=== PATIENT | female | born 1990 | race Hispanic/Latino ===

== ENCOUNTER 2018-08-23 12:46 | Emergency (ER) | payer OTHER ==
[~2018-08-23] VITALS: Ht 162.6 cm; Wt 72.6 kg
[2018-08-23] MEDS ORDERED: DICLEGIS DR 101 EACH PO (15:47)
[2018-08-23] MEDS ORDERED: FLAGYL500 MG PO (15:47)
== END 2018-08-23 15:56 | disposition home or self-care (01) ==
LOC: ED 12:46
DX: O20.0 Threatened abortion (principal); Z3A.01 Less than 8 weeks gestation of pregnancy; Z88.0 Allergy status to penicillin
CPT/HCPCS: 76705; 76801; 76817; 80053; 81001; 83690; 84702; 85025; 86900; 86901; 87210; 87491; 87591; 96374; 99284-25; J2405

== ENCOUNTER 2019-04-13 15:00 | Inpatient (IN) | payer OTHER ==
[~2019-04-13] VITALS: Ht 160 cm; Wt 83.0 kg
[~2019-04-13 15:00] MED LIST: DICLEGIS DR 101 EACH PO; FLAGYL500 MG PO
--- NOTE | 2019-04-16 08:30 | NUR ---
ATTEMPTED IV ACCESS TWICE ON THE PT'S RIGHT FOREARM. WAS ABLE TO OBTAIN BLOOD, IV CATHETER DID NOT THREAD EASILY AND WHEN FLUSHED THE IV'S INFILTRATED. ARJUN LAUGHLIN RN NOTIFIED AND WAS ABLE TO OBTAIN IV ACCESS ON THE LEFT ARM. PRESSURE DRESSINGS APPLIED TO BOTH SITES. BOTH ATTEMPTS WERE WITH AN 18G IV. THE FIRST ATTEMPT WAS A NORMAL PERIPHERAL ATTEMPT AND THE SECOND ATTEMPT WAS WITH ULTRASOUND.
--- NOTE | 2019-04-16 11:25 | NUR ---
04/16/19 Jared5 Linda Vega 1116- PT ARRIVES TO [facility] ROOM #103. PT IS ALERT AND ORIENTED. RESP EVEN AND UNLABORED. OXYGEN SAT MID TO HIGH 90'S ON RA. BABY SKIN TO SKIN WITH PT. PT'S AT THE BEDSIDE. PT REPORTS NO DIZZINESS, NAUSEA, OR PAIN. 20G IV TO LEFT FOREARM IS INFUSING WELL WITH PITOCIN IN LR. 1119- PT'S HEAD OF THE BED SLIGHTLY ELEVATED. PT REPORTS NO DIZZINESS, NAUSEA, OR PAIN.
--- NOTE | 2019-04-17 11:59 | PR ---
[facility] [address] [facility] [place], [place] [address] Signed PP Progress Notes Datetime Report Generated by CPN: 04/17/2019 11:59 SUBJECTIVE: [id number] Pain: Within normal limits Nausea/Vomiting: Denies Vital Signs: [id number] Vital Signs: Reviewed; Within Normal Limits Notable Details: PP Hgb/Hct = 8.8/26.5 EXAM: [id number] Abdomen/Uterus: Normal Lochia: Normal Extremities: Normal Incision: Normal IMPRESSION/PLAN/PROCEDURES: [id number] Impression: Normal progression Plan: Continue present management Procedures: None Progress Notes: Doing well, had headache, itching, increaed pain last night, but doing better this morning. Tolerating food well, up sitting in chair without problem. Increase activity as tolerated, may shower. Signing Physician: Lavon Chapman MD Copies: ~ *Electronically Signed* 04/17/19 1159 LAVON CHAPMAN MD PATIENT NAME: SARAH SMITH PROGRESS NOTE DATE OF : 90 PHYSICIAN: LAVON CHAPMAN MD RPT #: [id number] REPORT IS CONFIDENTIAL AND NOT TO BE RELEASED WITHOUT AUTHORIZATION
--- NOTE | 2019-04-18 12:01 | OR ---
[facility] [address] [place], [place] [address] Signed DATE OF OPERATION: 04/16/2019 SURGEON: Georges Barth MD Patient of Dr. Barth PREOPERATIVE DIAGNOSIS: Term , brent breech presentation. POSTOPERATIVE DIAGNOSIS: Term , brent breech presentation. PROCEDURE PERFORMED: Primary low transverse segment section. Delivery of live male . STATIONARY STEAM ENGINEER: Martha Richard MD. ANESTHESIA: Spinal. ESTIMATED BLOOD LOSS: 700 mL. COMPLICATIONS: None. DRAINS: Rodriguez to bladder. FINDINGS: Live male infant, in RSA brent breech presentation. Minimal amount of fluid present. Weight 7 pounds 4 ounces. Apgars 9 and 9. Normal uterus, normal left tube and ovary. The right tube and ovary are absent from previous surgery. DESCRIPTION OF THE PROCEDURE: The patient was brought to the operating room, placed in supine position after adequate spinal anesthesia was obtained, was prepped and draped in usual sterile fashion. A Pfannenstiel skin incision was made with a scalpel. Subcutaneous tissue was dissected with the scalpel and Bovie. The fascia was nicked with scalpel and extended in Electronically Signed By: GEORGES BARTH MD 04/18/19 1201 PATIENT NAME: SARAH SMITH OPERATIVE REPORT DATE OF : [birth year] REPORT #: [id number] PHYSICIAN: GEORGES BARTH MD PCP: RETA WESLEY REPORT IS CONFIDENTIAL AND NOT TO BE RELEASED WITHOUT AUTHORIZATION [facility] [address] [place], [place] [address] Signed transverse fashion using curved scissors. The underlying abdominal musculature was bluntly and sharply from the fascia, above and below the incision. The abdominal musculature was bluntly along the midline. The peritoneum was nicked with scissors extended in vertical fashion. The Michael self-retaining retractor was then inserted into the incision and tightened in place. The lower uterine segment was identified and a small skin incision was made in the midline using a scalpel. Only a small amount of clear fluid came from the incision. Finger dissection was used to extend the incision in transverse fashion, again with only a small amount of fluid seen. The was noted to be in a brent breech RSA presentation. The infant's buttocks were delivered. The legs individually delivered and the turned back up. The baby was then delivered to the shoulders where the arms were individually delivered and then the head easily delivered. Cord was doubly clamped and cut, and the was passed off table in good condition to the awaiting nurse. The placenta was then manually removed and the uterine cavity explored with a lap pad to remove any retained membranes. An angle stitch of 0 Monocryl was placed at one end of the incision and a running locking stitch of 0 Monocryl starting at the other end was used to close the incision. A 2nd running stitch of 0 Monocryl was used to imbricate the 1st layer. Good hemostasis was noted. The entire pelvis was irrigated, suctioned and examined, and any superficial bleeding spots cauterized with the Bovie. The Michael retractor was removed and sheet of ACell was placed over the lower uterine segment to help with healing. The anterior wall of peritoneum was then closed using running stitch of 2-0 Vicryl suture. The abdominal musculature was reapproximated using interrupted stitches of 0 Vicryl suture. There was one bleeding spot to the left side laterally which was bleeding from perforating vessel. This was controlled with Bovie and then a [id number] stitch of 0 Vicryl suture. When good hemostasis was obtained, the entire pelvis was irrigated, suctioned and examined, and any superficial bleeding spots cauterized with the Bovie. A powdered ACell was then sprinkled on the abdominal musculature to again to help with healing and the fascia closed using 2 running stitch of 0 Vicryl suture meeting in the midline. The subcutaneous tissue was irrigated, suctioned and examined, and any bleeding spots cauterized with the Bovie. The subcutaneous tissue was closed using interrupted stitches of 3-0 Vicryl suture and skin reapproximated using skin clips. The patient tolerated the procedure well and went to recovery room in good condition. The sponge, needle, and instrument count correct at the end of the procedure. Georges Barth MD MJB/MODL /[id number] Electronically Signed By: GEORGES BARTH MD 04/18/19 1201 PATIENT NAME: SARAH SMITH OPERATIVE REPORT DATE OF : [birth year] REPORT #: [id number] PHYSICIAN: GEORGES BARTH MD PCP: RETA WESLEY REPORT IS CONFIDENTIAL AND NOT TO BE RELEASED WITHOUT AUTHORIZATION [address], [place] [address] Signed Copies: ~ Electronically Signed By: GEORGES BARTH MD 04/18/19 1201 PATIENT NAME: JASMYNE WALLSARAH VANN OPERATIVE REPORT DATE OF : [birth year] REPORT #: [id number] PHYSICIAN: GEORGES BARTH MD PCP: RETA WESLEY REPORT IS CONFIDENTIAL AND NOT TO BE RELEASED WITHOUT AUTHORIZATION
--- NOTE | 2019-04-18 12:04 | PR ---
[facility] [address] [facility] [place], [place] [address] Signed PP Progress Notes Datetime Report Generated by CPN: 04/18/2019 12:04 SUBJECTIVE: [id number] Pain: Abnormal Pain Comments: still having some adiffuse abdominal pain, slowly improving Nausea/Vomiting: Denies Vital Signs: [id number] Vital Signs: Reviewed; Within Normal Limits Notable Details: PP Hgb/Hct = 8.8/26.5 EXAM: [id number] Abdomen/Uterus: Normal Lochia: Normal Extremities: Normal Incision: Normal IMPRESSION/PLAN/PROCEDURES: [id number] Impression: Normal progression Other Impression: PP Anemia Plan: Continue present management Procedures: None Progress Notes: Doing well, bu slow recovery; will continue to increase activity as tolerated. Using heating pad and abdominal binder prn. WIll have patinet stay one more day and hopefully ready to go home tomorrow. Signing Physician: Lavon Chapman MD Copies: ~ *Electronically Signed* 04/18/19 1204 LAVON CHAPMAN MD PATIENT NAME: SARAH SMITH PROGRESS NOTE DATE OF : 90 PHYSICIAN: LAVON CHAPMAN MD RPT #: [id number] REPORT IS CONFIDENTIAL AND NOT TO BE RELEASED WITHOUT AUTHORIZATION
--- NOTE | 2019-04-19 07:33 | PR ---
[facility] [address] [facility] [place], [place] [address] Signed PP Progress Notes Datetime Report Generated by CPN: 04/19/2019 07:33 SUBJECTIVE: [id number] Pain: Within normal limits Pain Comments: still having some adiffuse abdominal pain, slowly improving Nausea/Vomiting: Denies Vital Signs: [id number] Vital Signs: Reviewed; Within Normal Limits Notable Details: PP Hgb/Hct = 8.8/26.5 EXAM: [id number] Abdomen/Uterus: Normal Lochia: Normal Extremities: Normal Incision: Normal IMPRESSION/PLAN/PROCEDURES: [id number] Impression: Normal progression Other Impression: PP Anemia Plan: Discharge Procedures: None Progress Notes: Doing well, feeling better, ready to go home Signing Physician: Lavon Chapman MD Copies: ~ *Electronically Signed* 04/19/19 0733 LAVON CHAPMAN MD PATIENT NAME: SARAH SMITH PROGRESS NOTE DATE OF : 90 PHYSICIAN: LAVON CHAPMAN MD RPT #: [id number] REPORT IS CONFIDENTIAL AND NOT TO BE RELEASED WITHOUT AUTHORIZATION
== END 2019-04-19 11:10 | disposition home or self-care (01) | DRG 788 ==
LOC: FBC 04-16 07:56
PROVIDERS: ADMIT General Practice
PROC: 10D00Z1 Extraction of Products of Conception, Low, Open Approach (ICD-10-PCS; principal; 2019-04-16 08:30)
DX: O32.1XX0 Maternal care for breech presentation, not applicable or unspecified (principal); Z3A.39 39 weeks gestation of pregnancy; Z37.0 Single live birth; O99.02 Anemia complicating childbirth; D64.9 Anemia, unspecified; Z79.899 Other long term (current) drug therapy; Z88.0 Allergy status to penicillin
CPT/HCPCS: 01961; 36415; 85027; A9270; J1580; J2001; J2270; J2274; J2300; J2405; J2550; J2590; J2765; J3490; J7060; J7121